=== PATIENT | male | born 1995 | race Caucasian/White ===

== ENCOUNTER 2018-02-27 10:54 | Emergency (ER) | payer BC, OTHER ==
[~2018-02-27] VITALS: Ht 180.3 cm; Wt 76.5 kg
[2018-02-27 11:00] VITALS: TEMP 36.7; O2SAT 96; Ht 180.3 cm; Wt 76.5 kg
[2018-02-27] MEDS ORDERED: SODIUM CHLORIDE 0.9% 1000ML 2,000 ML IV STA (11:21)
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
--- NOTE | 2018-02-27 11:54 | DIAGNOSTIC IMAGING REPORT ---
CT HEAD WITHOUT CONTRAST (CT) CLINICAL HISTORY: syncope SEIZURE ACTIVITY COMPARISON STUDY: No previous studies for comparison. TECHNIQUE: Axial CT of the brain is performed from the vertex to the skull base. IV contrast was not administered for this examination. A dose lowering technique was utilized adhering to the principles of ALARA. CT DOSE: 638.56 mGycm FINDINGS: No intra or extra-axial mass lesions are visualized. There is no CT evidence of acute cortical infarction. There is no evidence of midline shift. There is no acute hemorrhage. No calvarial fractures are visualized. There is no evidence of pathologic ventricular dilatation. There is no evidence of acute sinusitis IMPRESSION: Normal noncontrast head CT. Electronically signed by: Leopoldo Bejarano M.D. 02/27/2018 11:53 AM Dictated Date/Time: 02/27/2018 11:51 AM
[2018-02-27 11:55] LABS: BASO % 0.4 %; BASO ABS # 0.01 K/uL (0-0.2); EOS % 4.3 %; EOS ABS # 0.12 K/uL (0-0.5); HEMATOCRIT 42.2 % (42-52); HEMOGLOBIN 15.5 g/dL (14.0-18.0); IG# 0.02 K/uL (0.00-0.02); LYMPH ABS # 0.75 K/uL (1.2-3.4); MEAN CELL VOLUME 87.6 fL (80-100); MEAN CORPUSCULAR HEMOGLOBIN 32.2 pg (25-34); MEAN CORPUSCULAR HGB CONC 36.7 g/dl (32-36); MEAN PLATELET VOLUME 9.5 fL (7.4-10.4); MONO ABS # 0.25 K/uL (0.11-0.59); NEUT % 58.6 %; NEUT ABS # 1.63 K/uL (1.4-6.5); PLATELET COUNT 205 K/uL (130-400); RED CELL DISTRIBUTION WIDTH CV 12.4 % (11.5-14.5); RED CELL DISTRIBUTION WIDTH SD 39.8 fL (36.4-46.3); WHITE BLOOD COUNT 2.78 K/uL (4.8-10.8)
--- NOTE | 2018-02-27 12:08 | DIAGNOSTIC IMAGING REPORT ---
CHEST ONE VIEW PORTABLE HISTORY: Generalized abdominal pain. COMPARISON: None. FINDINGS: The lungs are clear. Cardiac silhouette is normal in size. No pleural effusions. No pneumothorax. IMPRESSION: No acute process. Electronically signed by: Tyler Mccallum M.D. 02/27/2018 12:07 PM Dictated Date/Time: 02/27/2018 12:04 PM
[2018-02-27 12:20] LABS: ALBUMIN 3.8 gm/dl (3.4-5.0); CALCIUM 9.1 mg/dl (8.5-10.1); CREATININE 1.07 mg/dl (0.60-1.40)
[2018-02-27 12:31] LABS: TOTAL PROTEIN 6.9 gm/dl (6.4-8.2)
[2018-02-27 13:22] VITALS: BP 123/92; PULSE 56; O2SAT 98
== END 2018-02-27 13:37 | disposition home or self-care (01) ==
LOC: C.EDC 10:56
DX: R55 Syncope and collapse (principal); E86.0 Dehydration